=== PATIENT | female | born 1990 | race Caucasian/White ===

== ENCOUNTER 2019-08-26 12:18 | Emergency (ER) | payer BC, SELFPAY | END 2019-08-26 12:49 | disposition home or self-care (01) | LOC: BURERS 12:18 | DX: L03.011 Cellulitis of right finger (principal); F31.9 Bipolar disorder, unspecified; F44.9 Dissociative and conversion disorder, unspecified; F43.10 Post-traumatic stress disorder, unspecified; Z79.899 Other long term (current) drug therapy | CPT/HCPCS: 99283 ==

== ENCOUNTER 2019-10-30 02:39 | Emergency (ER) | payer SELFPAY ==
[2019-10-30] MEDS ORDERED: Sodium Chloride 0.9% 100 ML ONE (03:04)
[2019-10-30] MEDS ORDERED: Metoclopramide HCl 10 MG/2 ML VIAL ONE (03:04)
[2019-10-30 03:09] LABS: Pregnancy Test - Urine (BHCG) Negative (Negative); Pregu Control Background? CLEAR/WHITE (CLR/WHITE); Pregu Control Bar Appear? YES (CONTROL BAR); Specific Gravity 1.006 (1.002-1.036)
[2019-10-30] MEDS ORDERED: Ketorolac Tromethamine 30 MG/ML VIAL ONE (03:15)
== END 2019-10-30 03:40 | disposition home or self-care (01) ==
LOC: BURERS 02:39
DX: G43.909 Migraine, unspecified, not intractable, without status migrainosus (principal); F31.9 Bipolar disorder, unspecified; F43.10 Post-traumatic stress disorder, unspecified; F17.290 Nicotine dependence, other tobacco product, uncomplicated; Z79.899 Other long term (current) drug therapy
CPT/HCPCS: 81025; 96365; 96375; J1885; J2765; J3490